=== PATIENT | female | born 1940 | race Asian ===

== ENCOUNTER 2016-12-15 09:53 | Outpatient (CLI) | payer MEDICARE ==
--- NOTE | 2016-12-15 10:47 | XRay Report ---
ABDOMEN RADIOGRAPH INDICATION: Acute abdominal pain. COMPARISON: None similar at this institution. FINDINGS: Frontal abdominal upright radiograph demonstrates nonobstructive bowel gas pattern without focal suspicious calcifications, pneumatosis or pneumoperitoneum. Few pelvic phleboliths. Stool noted about the hepatic flexure. Mild lumbar dextroscoliosis. Lower lumbar and possibly right SI joint degenerative changes as well. Demineralized bones. Slight left basilar atelectasis. CONCLUSION: No acute abdominal radiographic abnormality, as described. Thank you for the opportunity to participate in this patient's care.
== END 2016-12-15 09:54 | disposition home or self-care (01) ==
LOC: SPVIMAG 09:53
PROVIDERS: ATTEND Internal Medicine
DX: R10.9 Unspecified abdominal pain (principal); J98.11 Atelectasis; I87.8 Other specified disorders of veins; M41.86 Other forms of scoliosis, lumbar region
CPT/HCPCS: 74000

== ENCOUNTER 2020-08-08 14:16 | Outpatient (CLI) | payer MEDICARE ==
--- NOTE | 2020-08-08 17:15 | Ultrasound Report ---
ULTRASOUND BREAST BILATERAL COMPLETE, 08/08/2020 CLINICAL INFORMATION / INDICATION: BREAST CA. Patient has recent biopsy proven right breast cancer an d presents for bilateral survey breast ultrasound. TECHNIQUE: Complete sonographic evaluation of all 4 quadrants and retroareolar region was performed. COMPARISON: Prior outside mammogram and right breast ultrasound 06/19/2020 FINDINGS: Right breast: Redemonstration of an irregular mass in the right breast 10:00 position located 8 cm fr om the nipple compatible with biopsy-proven malignancy, currently measuring up to 1.9 x 1.3 x 1.2 cm, previously 2.0 x 1.3 x 1.2 cm. There is an incidental benign-appearing oval circumscribed hypoechoic mass in the right breast 4:00 position located 3 cm from the nipple measuring up to 5 x 5 x 2 mm. Th e nodule is parallel. No internal vascularity is demonstrated. Otherwise, complete ultrasound of the right breast is unremarkable. There is no right axillary adenopathy. Left breast: Complete ultrasound of the left breast is unremarkable without evidence of cystic or daniel id lesion. IMPRESSION: 1. Biopsy-proven malignancy in the 10:00 right breast is not significantly changed compared with prio r examination. 2. An incidental 5 mm nodule in the 4:00 right breast is considered probably benign. Recommend right breast ultrasound in 6 months to ensure stability. 3. No suspicious sonographic abnormality identified in the left breast. Follow up recommendation: Surgical consultation with Dr. Ramírez is underway for known right breast cancer. Six-month follow-up right breast ultrasound for additional benign-appearing nodule. BI-RADS Category 6: Known Biopsy-Proven Malignancy. A normal or "negative" report should not preclude biopsy or follow-up of a clinically suspicious find ing. Signer Name: Deanne Yang MD Signed: 08/08/2020 5:11 PM Workstation Name: [email or web address]
== END 2020-08-08 14:17 | disposition home or self-care (01) ==
LOC: SPVWC 14:16
PROVIDERS: ATTEND Surgery
DX: C50.411 Malignant neoplasm of upper-outer quadrant of right female breast (principal); N63.11 Unspecified lump in the right breast, upper outer quadrant; N63.14 Unspecified lump in the right breast, lower inner quadrant; R92.8 Other abnormal and inconclusive findings on diagnostic imaging of breast

== ENCOUNTER 2020-09-05 06:19 | Day surgery (SDC) | payer MEDICARE ==
--- NOTE | 2020-08-30 14:04 | Anesthesia Consultation ---
Anesthesia Consult and Med Hx Date of service: 09/05/20 - Airway ROM Head & Neck: Adequate Mental/Hyoid Distance: Adequate Mallampati Class: Class II Intubation Access Assessment: Probably Good - Pulmonary Exam CTA: Yes - Cardiac Exam Cardiac Exam: RRR - Pre-Operative Health Status ASA Pre-Surgery Classification: ASA3 Proposed Anesthetic Plan: General Nerve Block: PECS II vs ES - Pulmonary Hx Respiratory Symptoms: No Hx Sleep Apnea: Yes (no CPAP) - Cardiovascular System Hx Hypertension: Yes Hx Heart Attack/AMI: No (recent neg ST and normal EF) Hx Percutaneous Transluminal Coronary Angioplasty (PTCA): No Hx Cardia Arrhythmia: No Hx Peripheral Vascular Disease: Yes - Central Nervous System CVA: Yes (15yrs ago; residual L sided weakness) - Endocrine 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 Cardiology eval on chart.
[~2020-09-05 06:19] MED LIST: ACETAMINOPHEN 500 MG TAB PO SCH; BACTERIOSTATIC SODIUM CHLORIDE 0.9% 30 ML VIAL INFILTRATI ONE; LACTATED RINGERS 1,000 ML IV SCH; MIDAZOLAM 2 MG/2 ML INJ IV NR; VANCOMYCIN 1,500 MG in SODIUM CHLORIDE 0.9% 500 ML 500 ML IV SCH; fentaNYL 100 MCG/2 ML INJ IV PRN
[2020-09-05] MEDS ORDERED: METHYLENE BLUE 50 MG/10 ML AMP ONE (07:29)
[2020-09-05] MEDS ORDERED: SODIUM CHLORIDE P/F VIAL 10 ML 10 ML ONE (07:30)
[2020-09-05] MEDS ORDERED: ONDANSETRON 4 MG/2 ML INJ IV PRN (07:31)
[2020-09-05] MEDS ORDERED: HYDROmorphone 1 MG/1 ML INJ IV PRN ×2 (07:31)
--- NOTE | 2020-09-05 07:31 | Anesthesia Day of Surgery ---
Anesthesia Day of Surgery - Day of Surgery Patient Examined: Yes Patient H&P Reviewed: Yes Patient is NPO: Yes
[2020-09-05] MEDS ORDERED: BUPIVACAINE/PF (0.25%) 2.5 MG/ML 30 ML VIAL INFILTRATI ONE (07:33)
[2020-09-05] MEDS ORDERED: dexAMETHasone 4 MG/ML VIAL ONE (07:34)
[2020-09-05] MEDS ORDERED: ROCURONIUM 50 MG/5 ML INJ IV ONE (07:44)
[2020-09-05] MEDS ORDERED: LIDOCAINE MPF (2%) 20 MG/1 ML VIAL 5 ML ONE (07:44)
[2020-09-05] MEDS ORDERED: fentaNYL 250 MCG/5 ML INJ ONE (07:45)
[2020-09-05] MEDS ORDERED: propofoL 200 MG/20 ML VIAL IV ONE (07:45)
[2020-09-05] MEDS ORDERED: WATER FOR IRRIG STERILE 1,500 ML BOTTLE IR ONE (09:18)
[2020-09-05] MEDS ORDERED: ATROPINE 0.1% (1 MG/10 ML) CARDIAC SYRINGE ONE (09:19)
[2020-09-05] MEDS ORDERED: NEOSTIGMINE 10MG/10 ML INJ MDV ONE (09:19)
--- NOTE | 2020-09-05 11:21 | Short Stay Summary ---
Short Stay Documentation Date of service: 09/05/20 - History H&P: obtained from office - Allergies and Medications Current Medications: Allergies Penicillins Allergy (Verified 08/28/20 17:01) Rash, itching Home Medications Medication Instructions Recorded Confirmed Last Taken Type Atorvastatin Calcium [Lipitor] 80 mg PO HS 08/30/20 08/30/20 09/04/20 History Triamterene/Hydrochlorothiazid 1 each PO HS 08/30/20 08/30/20 09/04/20 History [Triamterene-Hctz 37.5-25 mg Cp] amLODIPine [Norvasc] 10 mg PO HS 08/30/20 08/30/20 09/04/20 History oxyCODONE /ACETAMINOPHEN [Percocet 1 tab PO Q6HR PRN #12 tablet 09/05/20 U nknown Rx 5/325] Active Medications Acetaminophen (Acetaminophen 500 Mg Tab) 1,000 mg PO PREOP CLEMENTINA Stop: 09/05/20 23:59 Last Admin: 09/05/20 07:15 Dose: 1,000 mg Documented by: Fentanyl (Fentanyl 100 Mcg/2 Ml Inj) 100 mcg IV ONCE PRN PRN Reason: sedation for nerve block Stop: 09/05/20 23:59 Last Admin: 09/05/20 07:51 Dose: 50 mcg Documented by: Hydromorphone HCl (Hydromorphone 1 Mg/1 Ml Inj) 0.25 mg IV Q10MIN PRN PRN Reason: Pain, Moderate (4-6) Stop: 09/05/20 23:00 Hydromorphone HCl (Hydromorphone 1 Mg/1 Ml Inj) 0.5 mg IV Q10MIN PRN PRN Reason: Pain , Severe (7-10) Stop: 09/05/20 23:00 Vancomycin HCl 1,500 mg/ (Sodium Chloride) 530 mls @ 333 mls/hr IV PREOP CLEMENTINA; Protocol Stop: 09/05/20 21:00 Last Admin: 09/05/20 07:33 Dose: 333 mls/hr Documented by: Lactated Ringer's (Lactated Ringers) 1,000 mls @ 100 mls/hr IV DIRECT CLEMENTINA Stop: 09/05/20 23:59 Last Admin: 09/05/20 07:15 Dose: 100 mls/hr Documented by: Midazolam HCl (Midazolam 2 Mg/2 Ml Inj) 2 mg IV PREOP NR Stop: 09/05/20 23:59 Last Admin: 09/05/20 07:51 Dose: 1 mg Documented by: Ondansetron HCl (Ondansetron 4 Mg/2 Ml Inj) 4 mg IV ONCE PRN PRN Reason: Nausea And Vomiting Stop: 09/05/20 16:00 - Brief post op/procedure progress note Date of procedure: 09/05/20 Pre-op diagnosis: Right breast cancer upper outer quadrant Post-op diagnosis: same Procedure: Right partial mastectomy with SLNB Anesthesia: GETA Findings: Right breast mass and clip present; x3 SLNs Surgeon: SALTY PURCELL Estimated blood loss: minimal Pathology: list (see above) Specimen disposition: to lab Condition: stable - Disposition Condition at discharge: Good Disposition: DC-01 TO HOME OR SELFCARE Short Stay Discharge Plan Activity: other (no heavy lifting) Diet: regular Wound: keep clean and dry (wear breast binder; may shower in 48 hours; no baths) Follow up with: SALTY PURCELL MD [Staff Physician] - 7 Days Prescriptions: oxyCODONE /ACETAMINOPHEN [Percocet 5/325] 1 tab PO Q6HR PRN #12 tablet PRN Reason: Pain
--- NOTE | 2020-09-05 11:26 | Operative Report ---
Operative Report Operative Report: Operative Report: September 05, 2020 Preoperative diagnosis: Right breast cancer of the upper outer quadrant Postoperative diagnosis: Same Procedure: Right breast partial mastectomy of the upper outer quadrant with SLNB Surgeon: Hilary Ramírez MD Storage Consultant: Kd Briggs MD Anesthesia: General Findings: Right breast mass and clip present within radiograph specimen; x3 SLNs Complications: None EBL: Minimal Disposition: PACU in good condition Indications for operative procedure: This is an 80 year old lady with newly diagnosed right breast cancer of the upper outer quadrant, IDCA grade 2-3, Stage I, [id number] ER/MT positive (10:00 position 8-9 cm FN). Recommendations are to proceed with breast conservation. She understands the role of adjuvant radiation therapy and Oncotype DX will be obtained by medical oncology. She wished to proceed with the above procedure. Procedure in detail: Anesthesia placed right pectoral block. Patient was then taken to the operating room. Gen. anesthesia was administered. The right nipple was injected with radioisotope and 1 cc of methylene blue dye. Right breast and axilla were prepped and draped in the normal sterile operative fashion. Timeout was performed. Gamma probe was inserted into the axilla. The area of hot spot was identified. A right axillary incision was made with a 15 blade knife with dissection taken down to the subcutaneous tissues. The axillary fascia was opened with the Bovie cautery. 3 SLNs were identified and dissected free with blue dye present. All remaining counts were less than 10% of the highest count. Lymph nodes were sent to pathology for permanent processing. Hemostasis was obtained in the right axillary cavity. Axillary cavity was appropriately irrigated and suctioned. Hemostasis was noted. Axillary fascia was approximated and closed using interrupted 3-0 Vicryl and the skin brought together and closed using a running 4-0 Monocryl followed by skin affix. Attention was then taken towards the right breast. Ultrasound was used to breana the area of incision; known breast malignancy at 10:00 position 8-9 cm FN of 2 cm, mass palpable as well. An upper outer quadrant breast incision around 10:00 position was made with a 15 blade knife and dissection taken down to subcutaneous tissues. First began raising of the superior flap with dissection taken superiorly past the area of known malignancy and then taken down to the pectoralis muscle, followed by raising of the inferior flap, medial flap and lateral flap with all flaps taken past the area of known malignancy and then posteriorly down to the pectoralis muscle. The breast area of concern was appropriately removed posteriorly from the pectoralis muscle with the aid of the Bovie cautery. Specimen was marked and then sent to pathology and radiology; radiograph specimen with mass and clip present. Breast cavity was irrigated and hemostasis was obtained. Then proceeded with complex closure. The posterior deep breast tissues were then mobilized to approximate and cover pectoralis muscle; closed using interrupted 3-0 Vicryl. Deep breast tissues were then approximated and close using interrupted 3-0 Vicryl. The subcutaneous tissues were then approximated and closed using interrupted 3-0 Vicryl followed by closing of the skin with a running 4-0 Monocryl and skin affix. The patient tolerated surgery very well and she was awaken from anesthesia without any complication and transported to PACU in good condition.
--- NOTE | 2020-09-05 11:45 | Post Anesthesia Evaluation ---
- Post Anesthesia Evaluation Patient Participated: Yes Airway Patent: Yes Stable Respiratory Function: Yes Nausea/Vomiting: No Temp > 96.8F: Yes Pain Manageable: Yes Adequeate Hydration: Yes Anesthesia Complications: No Block Receding Appropriately: Not Applicable Patient on Ventilator: No
--- NOTE | 2020-09-05 11:48 | Mammography Report ---
BREAST SPECIMEN RADIOGRAPH HISTORY: Right excisional biopsy FINDINGS/IMPRESSION: The submitted radiograph or radiographs demonstrate(s) the presence of a biopsy marker within soft ti ssue mass, as expected. No wire is present. Signer Name: Concepcion Good MD Signed: 09/05/2020 11:43 AM Workstation Name: [id number]
[2020-09-05 13:33] VITALS: BP 123/73
== END 2020-09-05 13:15 | disposition home or self-care (01) ==
LOC: OR 06:19
PROVIDERS: ATTEND Surgery
DX: C50.411 Malignant neoplasm of upper-outer quadrant of right female breast (principal); Z20.822 Contact with and (suspected) exposure to COVID-19; I89.8 Other specified noninfective disorders of lymphatic vessels and lymph nodes; E78.00 Pure hypercholesterolemia, unspecified; I10 Essential (primary) hypertension; I73.9 Peripheral vascular disease, unspecified; J45.909 Unspecified asthma, uncomplicated; G47.30 Sleep apnea, unspecified; K21.9 Gastro-esophageal reflux disease without esophagitis; E66.9 Obesity, unspecified; M19.90 Unspecified osteoarthritis, unspecified site; Z90.710 Acquired absence of both cervix and uterus; Z88.0 Allergy status to penicillin; Z79.899 Other long term (current) drug therapy; Z98.41 Cataract extraction status, right eye; Z98.42 Cataract extraction status, left eye; Z68.32 Body mass index [BMI] 32.0-32.9, adult; Z98.890 Other specified postprocedural states; Z86.2 Personal history of diseases of the blood and blood-forming organs and certain disorders involving the immune mechanism; Z86.73 Personal history of transient ischemic attack (TIA), and cerebral infarction without residual deficits
CPT/HCPCS: 19301; 38525; 38792; 64450; 76098; 76942; 78800; 88307; 88341; 88342; A9541; J0461; J1100; J2250; J2704; J2710; J3010; J3370; J7040; J7120; U0003; 88333; Q9968